=== PATIENT | female | born 2000 | race Caucasian/White ===

== ENCOUNTER 2022-07-03 08:51 | Day surgery (SDC) | payer BC ==
[2022-07-02 11:08] VITALS: BMI 22.1
[2022-07-03] MEDS ORDERED: PROPOFOL 40 ML ONE (10:24)
[2022-07-03] MEDS ORDERED: Fentanyl 100 MCG/2 ML VIAL ONE (10:24)
[2022-07-03] MEDS ORDERED: Lidocaine 1% PF 5 ML VIAL ONE (10:24)
[2022-07-03] MEDS ORDERED: Esmolol 100 MG/10 ML VIAL ONE (10:37)
== END 2022-07-03 11:18 | disposition home or self-care (01) ==
LOC: CSHSDC 08:51
PROVIDERS: ATTEND Internal Medicine Gastroenterology
PROC: 0DB68ZX Excision of Stomach, Via Natural or Artificial Opening Endoscopic, Diagnostic (ICD-10-PCS; principal; 2022-07-03)
DX: K29.70 Gastritis, unspecified, without bleeding (principal); K31.89 Other diseases of stomach and duodenum; R11.0 Nausea
CPT/HCPCS: 88305; J2704; J3010